=== PATIENT | female | born 1945 | race Two or more races ===

== ENCOUNTER 2023-05-03 05:15 | Day surgery (SDC) | payer OTHER ==
[~2023-05-03] VITALS: Ht 152.4 cm; Wt 49.9 kg
[~2023-05-03 05:15] MED LIST: COZAAR25 MG PO; DORZOLAMIDE-TIM10 ML OPHT; SYNTHROID50 MCG
== END 2023-05-03 11:30 | disposition home or self-care (01) ==
LOC: CIR.AMB 05:15
PROVIDERS: ATTEND Obstetrics & Gynecology Gynecologic Oncology
DX: N83.291 Other ovarian cyst, right side (principal); N83.312 Acquired atrophy of left ovary; N94.89 Other specified conditions associated with female genital organs and menstrual cycle; N83.8 Other noninflammatory disorders of ovary, fallopian tube and broad ligament; D28.2 Benign neoplasm of uterine tubes and ligaments; I10 Essential (primary) hypertension; Z20.822 Contact with and (suspected) exposure to COVID-19; E78.5 Hyperlipidemia, unspecified; E03.9 Hypothyroidism, unspecified